=== PATIENT | male | born 1965 | race Caucasian/White ===

== ENCOUNTER 2017-11-07 06:40 | Emergency (ER) | payer SELFPAY ==
[~2017-11-07] VITALS: Ht 175.3 cm; Wt 140.6 kg
[~2017-11-07 06:40] MED LIST: MELO15TA23 PO
[2017-11-07 07:57] LABS: BASO % 1 % (0-3); EOS # 0.1 x10^3/uL (0.0-0.7); EOS % 1 % (0-3); HEMATOCRIT 41.3 % (39.0-53.0); HEMOGLOBIN 14.4 g/dL (13.0-17.5); LYMPH # 1.2 x10^3/uL (1.0-4.8); LYMPH % 22 % (24-48); MEAN CORPUSCULAR HEMOGLOBIN 30 pg (25-35); MEAN CORPUSCULAR HGB CONC 35 g/dL (31-37); MEAN CORPUSCULAR VOLUME 85 fL (79-100); MONO # 0.5 x10^3/uL (0.0-1.1); MONO % 9 % (0-9); NEUT # 3.8 x10^3uL (1.8-7.7); NEUT % 67 % (31-73); PLATELET COUNT 183 x10^3/uL (140-400); RED BLOOD COUNT 4.88 x10^6/uL (4.30-5.70); RED CELL DISTRIBUTION WIDTH 13.3 % (11.5-14.5); WHITE BLOOD COUNT 5.6 x10^3/uL (4.0-11.0)
[2017-11-07 08:12] LABS: CALCIUM 9.6 mg/dL (8.5-10.1); CREATININE 0.8 mg/dL (0.7-1.3); GFR 101.5; POTASSIUM 3.6 mmol/L (3.5-5.1)
[2017-11-07 08:18] LABS: ALBUMIN 3.8 g/dL (3.4-5.0); ALBUMIN/GLOBULIN RATIO 1.2 (1.0-1.7); TOTAL BILIRUBIN 0.4 mg/dL (0.2-1.0)
[2017-11-07 08:30] VITALS: BP 160/82
--- NOTE | 2017-11-07 09:12 | PHYS DOC ---
Past Medical History Past Medical History: Diabetes-Type II, High Cholesterol, Hypertension, Other Additional Past Medical Histor: testicular CA Past Surgical History: Other Additional Past Surgical Histo: testicle tumor removed, lypoma removal Alcohol Use: Occasionally Additional Information: 3-4 nights a week Drug Use: None Adult General Chief Complaint Chief Complaint: DIZZY/LIGHT HEADED HPI HPI Patient is a 52 year old female presenting with dizziness shortness of breath and palpitations. He's had these symptoms off for he says 10 years now but last night he was feeling dizzy he was feeling like his heart was pounding he had some mild shortness of breath he said he has dry mouth he thinks he might be anxious but is not sure. No chest pain symptoms are currently improved Review of Systems Review of Systems Constitutional: Denies fever or chills [] Eyes: Denies change in visual acuity, redness, or eye pain [] HENT: Has had sinus symptoms in the past but none recently Respiratory: Denies cough or Cardiovascular: No additional information not addressed in HPI [] GI: Denies abdominal pain, nausea, vomiting, bloody stools or diarrhea [] : Denies dysuria or hematuria [] Musculoskeletal: Denies back pain or joint pain [] All other systems were reviewed and found to be within normal limits, except as documented in this note. Allergies Allergies Allergies Coded Allergies Type Severity Reaction Last Updated Verified No Known Drug Allergies 07/17/13 No Physical Exam Physical Exam Constitutional: Well developed, well nourished, no acute distress, non-toxic appearance. [] HENT: Normocephalic, atraumatic, bilateral external ears normal, oropharynx moist, no oral exudates, nose normal. [] Eyes: PERRLA, EOMI, conjunctiva normal, no discharge. [] Neck: Normal range of motion, no tenderness, supple, no stridor. [] Cardiovascular:Heart rate regular rhythm, no murmur [] Lungs & Thorax: Bilateral breath sounds clear to auscultation [] Abdomen: Bowel sounds normal, soft, no tenderness, no masses, no pulsatile masses. [] Skin: Warm, dry, no erythema, no rash. [] Back: No tenderness, no CVA tenderness. [] Extremities: No tenderness, no cyanosis, no clubbing, ROM intact, no edema. [] [id number] intact bilaterally Neurologic: Alert and oriented X 3, normal motor function, normal sensory function, no focal deficits noted. []Cranial nerves intact Psychologic: Affect normal, judgement normal, mood mild anxiety Current Patient Data Vital Signs Vital Signs Date Time Temp Pulse Resp B/P (MAP) Pulse Ox O2 Delivery O2 Flow Rate FiO2 11/07/17 08:30 76 20 94 11/07/17 07:11 97.8 158/88 (111) Room Air 97.8 Lab Values Laboratory Tests Test 11/07/17 07:47 White Blood Count 5.6 x10^3/uL (4.0-11.0) Red Blood Count 4.88 x10^6/uL (4.30-5.70) Hemoglobin 14.4 g/dL (13.0-17.5) Hematocrit 41.3 % (39.0-53.0) Mean Corpuscular Volume 85 fL (79-100) Mean Corpuscular Hemoglobin 30 pg (25-35) Mean Corpuscular Hemoglobin Concent 35 g/dL (31-37) Red Cell Distribution Width 13.3 % (11.5-14.5) Platelet Count 183 x10^3/uL (140-400) Neutrophils (%) (Auto) 67 % (31-73) Lymphocytes (%) (Auto) 22 % (24-48) L Monocytes (%) (Auto) 9 % (0-9) Eosinophils (%) (Auto) 1 % (0-3) Basophils (%) (Auto) 1 % (0-3) Neutrophils # (Auto) 3.8 x10^3uL (1.8-7.7) Lymphocytes # (Auto) 1.2 x10^3/uL (1.0-4.8) Monocytes # (Auto) 0.5 x10^3/uL (0.0-1.1) Eosinophils # (Auto) 0.1 x10^3/uL (0.0-0.7) Basophils # (Auto) 0.0 x10^3/uL (0.0-0.2) Sodium Level 137 mmol/L (136-145) Potassium Level 3.6 mmol/L (3.5-5.1) Chloride Level 100 mmol/L (98-107) Carbon Dioxide Level 23 mmol/L (21-32) Anion Gap 14 (6-14) Blood Urea Nitrogen 13 mg/dL (8-26) Creatinine 0.8 mg/dL (0.7-1.3) Estimated GFR (Cockcroft-Gault) 101.5 BUN/Creatinine Ratio 16 (6-20) Glucose Level 125 mg/dL (70-99) H Calcium Level 9.6 mg/dL (8.5-10.1) Total Bilirubin 0.4 mg/dL (0.2-1.0) Aspartate Amino Transferase (AST) 17 U/L (15-37) Alanine Aminotransferase (ALT) 32 U/L (16-63) Alkaline Phosphatase 65 U/L (46-116) Troponin I Quantitative < 0.017 ng/mL (0.000-0.055) Total Protein 7.0 g/dL (6.4-8.2) Albumin 3.8 g/dL (3.4-5.0) Albumin/Globulin Ratio 1.2 (1.0-1.7) Laboratory Tests 11/07/17 07:47 Laboratory Tests 11/07/17 07:47 EKG EKG []Normal sinus rhythm rate of 72 no acute ischemic changes noted this is interpreted by me the time of encounter intervals are normal no STEMI Radiology/Procedures Radiology/Procedures [] Course & Med Decision Making Course & Med Decision Making Pertinent Labs and Imaging studies reviewed. (See chart for details) []52-year-old male presenting with spectrum of symptoms it seems most consistent with anxiety in general. Troponin EKG are negative for any ischemia there was no chest pain this does not sound acute coronary syndrome labs are otherwise unremarkable noted mild blood pressure patient was advised and the importance of follow-up within 1 month reassurance was provided and he voiced understanding of instructions Dragon Disclaimer Dragon Disclaimer This electronic medical record was generated, in whole or in part, using a voice recognition dictation system. Departure Departure Impression: Primary Impression: Anxiety Additional Impression: Elevated blood pressure reading Disposition: 01 HOME, SELF-CARE Condition: STABLE Patient Instructions: Anxiety and Panic Attacks, [id number] Problem Qualifiers ALFREDA SHERMAN MD Nov 07, 2017 09:12
--- NOTE | 2017-11-07 10:30 | EKG ---
[facility] [address] [place] [id number] Test Date: 2017-11-07 Test Time: 07:19:37 Pat Name: JOHNY DALTON Department: Room: Gender: [employer]: : 1965 Requested By: ALFREDA SHERMAN Order Number: [id number] Reading MD: Measurements Intervals [place] Rate: 72 P: -21 PA: 158 QRS: -7 QRSD: 106 T: 26 QT: 370 QTc: 407 Interpretive Statements SINUS RHYTHM LEFTWARD AXIS R-S TRANSITION ZONE IN V LEADS DISPLACED TO THE LEFT OTHERWISE NORMAL ECG RI6.01 No previous ECG available for comparison
== END 2017-11-07 08:32 | disposition home or self-care (01) ==
LOC: ER 06:40
DX: I10 Essential (primary) hypertension (principal); F41.9 Anxiety disorder, unspecified; R06.02 Shortness of breath; R00.2 Palpitations; E11.9 Type 2 diabetes mellitus without complications; E78.00 Pure hypercholesterolemia, unspecified
CPT/HCPCS: 36415; 80053; 84484; 85025; 93005; 99285-25

== ENCOUNTER → 2020-05-24 | Outpatient (CLI) | payer OTHER ==
--- NOTE | 2020-05-25 14:27 | SLEEP ---
DATE OF STUDY: 05/24/2020 HOME SLEEP STUDY ATTENDING PHYSICIAN: Dr. Nadira Keita. The patient is a 55-year-old who weighs 325 pounds with a BMI of 49.4. The patient underwent home sleep study performed by [facility]. Total recording time was 339 minutes. During the night study, the patient had 67 obstructive apneas, 5 central apneas and 131 mixed apneas. The patient also had 53 hypopneas. The patient's AHI was 47 per hour. Nocturnal oximetry study revealed an average oxygen saturation of 91% with the lowest of 70%. 80 minutes were spent with oxygen saturation of less than 90% and 10 minutes with saturation of less than 85%. Mean heart rate 85 beats per minute. IMPRESSION: 1. Severe obstructive sleep apnea at an AHI of 47 per hour. 2. Nocturnal hypoxia secondary to obstructive sleep apnea. RECOMMENDATIONS: 1. The patient would benefit from in-lab CPAP titration study. Alternate treatment option would include home auto-titration with CPAP. 2. Once the patient is optimally treated with CPAP, then follow up in 4-6 weeks to assess compliance and to document clinical improvement. 3. Weight loss is strongly advised. 4. Avoid [employer] depressants. 5. Caution regarding driving until symptoms of sleep apnea have resolved with above recommendations. ESPERANZA PEGUERO MD DR: EMIGDIO/charlotte JOB#: [id number] / [id number] NADIRA Mcghee MD
== END ==
LOC: RT 11:24
PROVIDERS: ATTEND Family Medicine
DX: G47.33 Obstructive sleep apnea (adult) (pediatric) (principal); G47.34 Idiopathic sleep related nonobstructive alveolar hypoventilation; R53.83 Other fatigue
CPT/HCPCS: G0399